=== PATIENT | female | born 1935 | race Caucasian/White ===

== ENCOUNTER 2024-03-18 12:25 | Inpatient (IN) | payer BC, OTHER ==
[~2024-03-18] VITALS: Ht 149.9 cm; Wt 63.5 kg
[2024-03-18] MEDS ORDERED: IOHEXOL 350 100 ML INFUS..BTL ONE (12:49)
[2024-03-18 12:55] LABS: BASOPHILS % (AUTO) 0.7 % (0.0-2.0); EOSINOPHILS # (AUTO) 0.1 K/uL (0.0-0.7); EOSINOPHILS % (AUTO) 1.6 % (0.0-7.0); HEMATOCRIT 36.7 % (31.2-41.9); HEMOGLOBIN 12.4 g/dL (10.9-14.3); LYMPHOCYTES # (AUTO) 0.8 K/uL (0.8-4.8); LYMPHOCYTES % (AUTO) 12.6 % (20.5-51.5); MEAN CORPUSCULAR HEMOGLOBIN 29.9 uug (24.7-32.8); MEAN CORPUSCULAR HGB CONC 34 g/dL (32.3-35.6); MEAN CORPUSCULAR VOLUME 88.8 fL (75.5-95.3); MONOCYTES # (AUTO) 0.4 K/uL (0.1-1.30); MONOCYTES % (AUTO) 5.9 % (0.0-11.0); NEUTROPHILS # (AUTO) 4.9 K/uL (1.8-8.9); NEUTROPHILS % (AUTO) 79.2 % (38.5-71.5); PLATELET COUNT (AUTO) 246 K/uL (179-408); RED BLOOD CELL COUNT(AUTO) 4.13 MIL/uL (3.63-4.92); RED CELL DISTRIBUTION WIDTH 12.9 % (12.3-17.7); WHITE BLOOD COUNT (AUTO) 6.2 K/uL (3.8-11.8)
[2024-03-18 12:57] LABS: DIFFERENTIAL COMMENT 1
[2024-03-18] MEDS ORDERED: METF-98 PO (12:57)
[2024-03-18] MEDS ORDERED: LISI-782 PO (12:57)
[2024-03-18 13:05] LABS: CALCIUM 9.4 mg/dL (8.5-10.1); CARBON DIOXIDE 27 mmol/L (21-32); CHLORIDE 105 mmol/L (98-107); CREATININE 1.2 mg/dL (0.6-1.3); GLUCOSE 124 mg/dL (74-106); POTASSIUM 4.1 mmol/L (3.5-5.1); SODIUM SERUM 142 mmol/L (136-145); UREA NITROGEN, BLOOD 21 mg/dL (7-18)
[2024-03-18 13:19] LABS: ALANINE AMINOTRANSFERASE 16 U/L (14-59); ALBUMIN 3.9 g/dL (3.4-5.0); ALKALINE PHOSPHATASE 106 U/L (50-136); ASPARTATE AMINOTRANSFERASE 12 U/L (15-37); BILIRUBIN,DIRECT 0.2 mg/dL (0.0-0.2); BILIRUBIN,TOTAL 0.6 mg/dL (0.2-1.0)
[2024-03-18 14:25] LABS: *BILIRUBIN,URIN NEGATIVE (NEGATIVE); *CLARITY,URINE CLEAR (CLEAR); *COLOR,URINE YELLOW (YELLOW); *KETONES,URINE NEGATIVE (NEGATIVE); *PROTEIN,URINE NEGATIVE (NEGATIVE); *UROBILINOGEN,URINE 0.2 E.U./dl (NORMAL); LEUKOCYTE ESTERASE ,URINE NEGATIVE (NEGATIVE); NITRITE, URINE NEGATIVE (NEGATIVE); PH,URINE 7.5 (5.0-8.0); UGLUCOSE NEGATIVE (NEGATIVE)
[2024-03-18 14:33] LABS: *BLOOD, URINE TRACE (NEGATIVE)
[2024-03-18 14:52] LABS: BACTERIA,URINE FEW /HPF (NONE SEEN); RBC,URINE 0-3 /HPF (0-3); SQUAMOUS EPITHELIAL CELL,UR FEW /HPF (NONE SEEN); WBC,URINE 0-3 /HPF (0-3)
[2024-03-18] MEDS ORDERED: hydrALAZINE HCL 20 MG/1 ML VIAL ONE (17:17)
[2024-03-18] MEDS: hydrALAZINE HCL 20 MG/1 ML VIAL IV ONE (17:20)
[2024-03-18 18:57] VITALS: BP 131/52; TEMP 98.4; O2SAT 96
[2024-03-18 19:00] VITALS: BP 130/50; TEMP 97.6; O2SAT 96
[2024-03-18] MEDS ORDERED: ACETAMINOPHEN 325 MG TABLET PO PRN (19:45)
[2024-03-18] MEDS ORDERED: MAGNESIUM HYDROXIDE 30 ML LIQUID UDC PO PRN (19:45)
[2024-03-18] MEDS ORDERED: ONDANSETRON 4 MG/2 ML VIAL IV PRN (19:45)
[2024-03-18] MEDS: ENOXAPARIN SODIUM 40 MG/0.4 ML DISP.SYRIN SQ SCH (22:00)
[2024-03-18] MEDS: CLOPIDOGREL 75 MG TABLET PO SCH (22:00)
[2024-03-18] MEDS: ATORVASTATIN 40 MG TABLET PO SCH (22:00)
[2024-03-18] MEDS: METOPROLOL TARTRATE 25 MG TABLET PO SCH (22:00)
[2024-03-19] VITALS: BP 121/40; TEMP 97.8; O2SAT 100
[2024-03-19 06:00] VITALS: BP 140/68; TEMP 97.8; O2SAT 98
[2024-03-19] MEDS: PANTOPRAZOLE SODIUM 40 MG TABLET.DR PO SCH (06:15)
[2024-03-19 06:54] LABS: BASOPHILS % (AUTO) 0.5 % (0.0-2.0); EOSINOPHILS # (AUTO) 0.1 K/uL (0.0-0.7); EOSINOPHILS % (AUTO) 1.7 % (0.0-7.0); HEMATOCRIT 36.6 % (31.2-41.9); HEMOGLOBIN 12.8 g/dL (10.9-14.3); LYMPHOCYTES # (AUTO) 1.2 K/uL (0.8-4.8); MEAN CORPUSCULAR HEMOGLOBIN 30.8 uug (24.7-32.8); MEAN CORPUSCULAR HGB CONC 35 g/dL (32.3-35.6); MEAN CORPUSCULAR VOLUME 88.5 fL (75.5-95.3); MONOCYTES # (AUTO) 0.5 K/uL (0.1-1.30); MONOCYTES % (AUTO) 7.8 % (0.0-11.0); NEUTROPHILS # (AUTO) 4.8 K/uL (1.8-8.9); PLATELET COUNT (AUTO) 272 K/uL (179-408); RED BLOOD CELL COUNT(AUTO) 4.14 MIL/uL (3.63-4.92); RED CELL DISTRIBUTION WIDTH 12.9 % (12.3-17.7); WHITE BLOOD COUNT (AUTO) 6.7 K/uL (3.8-11.8)
[2024-03-19 07:11] LABS: DIFFERENTIAL COMMENT 1
[2024-03-19 07:18] LABS: ALANINE AMINOTRANSFERASE 19 U/L (14-59); ALBUMIN 4.1 g/dL (3.4-5.0); ALKALINE PHOSPHATASE 107 U/L (50-136); ASPARTATE AMINOTRANSFERASE 16 U/L (15-37); BILIRUBIN,TOTAL 0.5 mg/dL (0.2-1.0); CALCIUM 9.4 mg/dL (8.5-10.1); CARBON DIOXIDE 27 mmol/L (21-32); CHLORIDE 104 mmol/L (98-107); CHOLESTEROL 264 mg/dL (<200); CREATININE 1.3 mg/dL (0.6-1.3); GLUCOSE 102 mg/dL (74-106); HDL CHOLESTEROL 69 mg/dL (40-60); MAGNESIUM 2.1 mg/dL (1.8-2.4); PHOSPHOROUS 3.2 mg/dL (2.5-4.9); POTASSIUM 3.7 mmol/L (3.5-5.1); SODIUM SERUM 142 mmol/L (136-145); TOTAL PROTEIN, SERUM 7.4 g/dL (6.4-8.2); TRIGLYCERIDES 196 MG/DL (30-150); UREA NITROGEN, BLOOD 23 mg/dL (7-18)
[2024-03-19 07:34] VITALS: BP 133/62; TEMP 98.4; O2SAT 96
[2024-03-19] MEDS: ASPIRIN EC 81 MG TABLET.DR PO SCH (09:25)
[2024-03-19 09:57] LABS: THYROID STIMULATING HORMONE 3.341 mIU/mL (0.358-3.740)
[2024-03-19 11:18] VITALS: BP 114/50; TEMP 98.4; O2SAT 96
[2024-03-19 14:45] LABS: THYROID STIMULATING HORMONE 3.341 mIU/mL (0.358-3.740)
[2024-03-19 15:06] VITALS: BP 125/56; TEMP 98.2; O2SAT 97
[2024-03-19 20:00] VITALS: TEMP 98.3
[2024-03-19] MEDS: hydrALAZINE HCL 25 MG TABLET PO PRN (20:57)
[2024-03-20] VITALS: TEMP 98.8
[2024-03-20 04:00] VITALS: TEMP 98.1
[2024-03-20 07:17] LABS: CALCIUM 8.5 mg/dL (8.5-10.1); CARBON DIOXIDE 26 mmol/L (21-32); CHLORIDE 106 mmol/L (98-107); CREATININE 1.3 mg/dL (0.6-1.3); GLUCOSE 116 mg/dL (74-106); MAGNESIUM 2.1 mg/dL (1.8-2.4); PHOSPHOROUS 3.2 mg/dL (2.5-4.9); POTASSIUM 4.2 mmol/L (3.5-5.1); SODIUM SERUM 141 mmol/L (136-145); UREA NITROGEN, BLOOD 24 mg/dL (7-18)
[2024-03-20 07:54] VITALS: BP 138/84; TEMP 97.8; O2SAT 96
[2024-03-20] MEDS ORDERED: ATOR40TA PO (11:09)
[2024-03-20] MEDS ORDERED: CLOP75TA33 PO (11:09)
[2024-03-20] MEDS ORDERED: ASPI-618 PO (11:09)
[2024-03-20] MEDS ORDERED: PANT40TA49 PO (11:09)
[2024-03-20] MEDS ORDERED: METO25TA6 PO (11:09)
[2024-03-20 11:36] VITALS: BP 126/51; TEMP 98.4; O2SAT 95
== END 2024-03-20 13:00 | disposition home or self-care (01) | DRG 65 ==
LOC: ER 12:25 → TELE3 18:18 → TELE-TD3 03-20 10:54
PROVIDERS: ADMIT Internal Medicine; ATTEND Internal Medicine
DX: I63.9 Cerebral infarction, unspecified (principal); D68.59 Other primary thrombophilia; R20.9 Unspecified disturbances of skin sensation; R29.701 NIHSS score 1; I63.81 Other cerebral infarction due to occlusion or stenosis of small artery; R20.2 Paresthesia of skin; Z86.73 Personal history of transient ischemic attack (TIA), and cerebral infarction without residual deficits; R79.89 Other specified abnormal findings of blood chemistry; E66.9 Obesity, unspecified; Z68.28 Body mass index [BMI] 28.0-28.9, adult; I10 Essential (primary) hypertension; K59.00 Constipation, unspecified; Z79.84 Long term (current) use of oral hypoglycemic drugs; Z79.899 Other long term (current) drug therapy; E11.9 Type 2 diabetes mellitus without complications; M15.9 Polyosteoarthritis, unspecified; M47.819 Spondylosis without myelopathy or radiculopathy, site unspecified; G31.9 Degenerative disease of nervous system, unspecified; E78.5 Hyperlipidemia, unspecified
CPT/HCPCS: 36415; 70450; 70496; 70551; 71045; 83605; 83735; 83921; 84100; 84443; 84484; 85025; 85730; 87040; 93005; 93307; A4606; A4663; G0378; J0360; J1650; Q9967